=== PATIENT | female | born 1990 | race Caucasian/White ===

== ENCOUNTER 2017-08-01 18:56 | Emergency (ER) | payer BC, OTHER ==
[~2017-08-01] VITALS: Ht 154.9 cm; Wt 74.5 kg
[2017-08-01 18:58] VITALS: TEMP 36.9; Ht 154.9 cm; Wt 74.5 kg
[2017-08-01] MEDS ORDERED: SODIUM CHLORIDE 0.9% 1000ML 1,000 ML IV STA (19:11)
--- NOTE | 2017-08-01 19:14 | EMERGENCY ROOM VISIT NOTE ---
History Report prepared by Benibvinny: Starla Rodríguez Under the Supervision of: Dr. Lincoln Rogers D.O. First contact with patient: 19:00 Chief Complaint: ABDOMINAL PAIN Stated Complaint: ABDOMINAL PAIN, PRESSURE History of Present Illness The patient is a 27 year old female who presents to the Emergency Room with complaints of worsening abdominal pain for the past 6 weeks. She rates her discomfort as a 3/10 in severity. She describes her pain as feeling crampy in nature and reports she occasionally experiences "sharp" pain up the sides of her abdomen. The patient notes she is currently 17 weeks with her second . She has a history of pelvic congestion syndrome and endometriosis. She states her pain feels similar to her endometriosis pain. She denies any recent abnormal vaginal bleeding or discharge. She notes she saw her CONSULTING HR PROFESSIONAL at [facility] several weeks ago for the pain and was given a "belly brace", which has provided mild relief. Her last ultrasound was yesterday and showed Александр Garcia contractions. She admits to increased urination, but thinks this is because of her . 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 A total of 10 systems reviewed and were otherwise negative. Past Medical & Surgical Medical Problems: (1) Endometriosis (2) Kidney stones (3) Pelvic congestion syndrome (4) Pilonidal cyst Surgical Problems: (1) History of surgical removal of pilonidal cyst Social History Smoking Status: Never Smoker Alcohol Use: occasionally Drug Use: none Marital Status: in relationship Housing Status: lives with family Occupation Status: employed Current/Historical Medications Scheduled Multivit/Min/Iron/Fol Ac/Pren ( Vitamin), 1 TAB PO HS Allergies Coded Allergies: Acetaminophen (Unverified Allergy, Severe, VOMITING, 08/01/17) Hydrocodone (Unverified Allergy, Severe, VOMITING, 08/01/17) Chocolate (Verified Allergy, Unknown, ., 08/01/17) Egg (Verified Allergy, Unknown, ., 08/01/17) Milk (Verified Allergy, Unknown, ., 08/01/17) [place] (Verified Allergy, Unknown, ., 08/01/17) Peanut (Verified Allergy, Unknown, ., 08/01/17) [place] (Verified Allergy, Unknown, ., 08/01/17) Physical Exam Vital Signs Date Time Temp Pulse Resp B/P (MAP) Pulse Ox O2 Delivery O2 Flow Rate FiO2 08/02/17 00:06 71 16 100/58 99 08/01/17 22:42 86 17 93/78 98 Room Air 08/01/17 21:44 87 17 109/74 99 Room Air 08/01/17 20:36 83 17 109/78 100 Room Air 08/01/17 19:34 76 19 104/70 100 Room Air 08/01/17 18:58 36.9 91 18 148/93 100 Room Air Physical Exam GENERAL: Patient is awake, alert, in no acute distress, patient is resting comfortably and showing no signs of anxiety EYES: The conjunctivae are clear. The pupils are round and reactive. EARS, NOSE, MOUTH AND THROAT: The nose is without any evidence of any deformity. Mucous membranes are moist tongue is midline NECK: The neck is nontender and supple. RESPIRATORY: Normal respiratory effort is noted there is no evidence of wheezing rhonchi or rales CARDIOVASCULAR: Regular rate and rhythm noted there no murmurs rubs or gallops normal S1 normal S2 GASTROINTESTINAL: The abdomen is gravid in appearance. There was no tenderness, guarding or rigidity elicited. BACK: No midline tenderness or or step-off noted range of motion in flexion extension as well as rotation no signs of muscle spasm noted MUSCULOSKELETAL/EXTREMITIES: There is no evidence of gross deformity full range of motion is noted in the hips and shoulders SKIN: There is no obvious evidence of any rash. There are no petechiae, pallor or cyanosis noted. NEUROLOGIC: Patient is awake alert and oriented x3 Medical Decision & Procedures Laboratory Results 08/01/17 19:25 Red Blood Count 3.79, Mean Corpuscular Volume 96.3, Mean Corpuscular Hemoglobin 32.5, Mean Corpuscular Hemoglobin Concent 33.7, Mean Platelet Volume 9.7, Neutrophils (%) (Auto) 63.1, Lymphocytes (%) (Auto) 27.1, Monocytes (%) (Auto) 7.8, Eosinophils (%) (Auto) 1.5, Basophils (%) (Auto) 0.3, Neutrophils # (Auto) 6.67, Lymphocytes # (Auto) 2.87, Monocytes # (Auto) 0.83, Eosinophils # (Auto) 0.16, Basophils # (Auto) 0.03 08/01/17 19:25 Test 08/01/17 19:25 White Blood Count 10.58 K/uL (4.8-10.8) Red Blood Count 3.79 M/uL (4.2-5.4) Hemoglobin 12.3 g/dL (12.0-16.0) Hematocrit 36.5 % (37-47) Mean Corpuscular Volume 96.3 fL (80-100) Mean Corpuscular Hemoglobin 32.5 pg (25-34) Mean Corpuscular Hemoglobin Concent 33.7 g/dl (32-36) Platelet Count 262 K/uL (130-400) Mean Platelet Volume 9.7 fL (7.4-10.4) Neutrophils (%) (Auto) 63.1 % Lymphocytes (%) (Auto) 27.1 % Monocytes (%) (Auto) 7.8 % Eosinophils (%) (Auto) 1.5 % Basophils (%) (Auto) 0.3 % Neutrophils # (Auto) 6.67 K/uL (1.4-6.5) Lymphocytes # (Auto) 2.87 K/uL (1.2-3.4) Monocytes # (Auto) 0.83 K/uL (0.11-0.59) Eosinophils # (Auto) 0.16 K/uL (0-0.5) Basophils # (Auto) 0.03 K/uL (0-0.2) RDW Standard Deviation 47.1 fL (36.4-46.3) RDW Coefficient of Variation 13.5 % (11.5-14.5) Immature Granulocyte % (Auto) 0.2 % Immature Granulocyte # (Auto) 0.02 K/uL (0.00-0.02) Prothrombin Time 9.0 SECONDS (9.0-12.0) Prothromb Time International Ratio 0.8 (0.9-1.1) Activated Partial Thromboplast Time 25.4 SECONDS (21.0-31.0) Partial Thromboplastin Ratio 1.0 Urine Color YELLOW Urine Appearance CLEAR (CLEAR) Urine pH 7.0 (4.5-7.5) Urine Specific [place] 1.018 (1.000-1.030) Urine Protein NEG (NEG) Urine Glucose (UA) NEG (NEG) Urine Ketones NEG (NEG) Urine Occult Blood NEG (NEG) Urine Nitrite NEG (NEG) Urine Bilirubin NEG (NEG) Urine Urobilinogen NEG (NEG) Urine Leukocyte Esterase NEG (NEG) Anion Gap 4.0 mmol/L (3-11) Est Creatinine Clear Calc Drug Dose 105.8 ml/min Estimated GFR () 128.4 Estimated GFR (Non- 110.8 BUN/Creatinine Ratio 12.9 (10-20) Calcium Level 8.8 mg/dl (8.5-10.1) Total Bilirubin 0.3 mg/dl (0.2-1) Aspartate Amino Transf (AST/SGOT) 9 U/L (15-37) Alanine Aminotransferase (ALT/SGPT) 16 U/L (12-78) Alkaline Phosphatase 56 U/L (45-117) Total Protein 7.1 gm/dl (6.4-8.2) Albumin 3.3 gm/dl (3.4-5.0) Globulin 3.8 gm/dl (2.5-4.0) Albumin/Globulin Ratio 0.9 (0.9-2) Human Chorionic Gonadotropin, Quant 68081 mIU/mL Laboratory results per my review. Medications Administered Medications (Trade) Dose Ordered Sig/Talon Route Start Time Stop Time Status Last Admin Dose Admin Sodium Chloride 1,000 ml @ 999 mls/hr Q1H1M STAT IV 08/01/17 19:11 08/01/17 20:11 DC 08/01/17 19:11 999 MLS/HR ED Course 1905: The patient was evaluated in room C9. A complete history and physical examination were performed. 1910: NSS 1000 ml @ 999 mls/hr IV. 2049: I reevaluated the patient. She is resting comfortably and awaiting ultrasound. Medical Decision Prior records/ancillary studies reviewed. Triage Nursing notes reviewed. The patient's history was concerning for abdominal pain. Differential diagnosis: Etiologies such as appendicitis, diverticulitis, PUD, biliary pathology, UTI, pancreatitis, obstruction, mesenteric ischemia, aortic pathology, infections, inflammatory bowel disease, renal colic, as well as others were entertained. The patient is a 27-year-old female who presented to the emergency department with sharp intermittent pain. She is also 17 weeks and was concerned about the . The patient's physical exam was not consistent with an acute surgical abdomen. The patient was reevaluated multiple times. She was treated with IV fluids. She did not wish to have any medications for pain or nausea and she had no pain at this time. The patient's ultrasound took a very long time to obtain in the emergency department. She was signed out to Dr. Aparicio at change of shift. Please see his note for continuation of care. 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 Medication Reconcilliation Current Medication List: was personally reviewed by me Blood Pressure Screening Patient's blood pressure: Normal blood pressure Blood pressure disposition: Did not require urgent referral Impression Primary Impression: Abdominal pain Additional Impression: Scribe Attestation The scribe's documentation has been prepared under my direction and personally reviewed by me in its entirety. I confirm that the note above accurately reflects all work, treatment, procedures, and medical decision making performed by me. Departure Information Referrals No Doctor, Assigned (PCP) Patient Instructions My [facility] Problem Qualifiers Primary Impression: Abdominal pain Abdominal location: generalized Qualified Codes: R10.84 - Generalized abdominal pain Additional Impression: Weeks of gestation: 17 weeks Qualified Codes: Z3A.17 - 17 weeks gestation of
[2017-08-01 19:38] LABS: HEMATOCRIT 36.5 % (37-47); MEAN CELL VOLUME 96.3 fL (80-100); MEAN CORPUSCULAR HEMOGLOBIN 32.5 pg (25-34); MEAN CORPUSCULAR HGB CONC 33.7 g/dl (32-36); MEAN PLATELET VOLUME 9.7 fL (7.4-10.4); PLATELET COUNT 262 K/uL (130-400); RED BLOOD COUNT 3.79 M/uL (4.2-5.4); WHITE BLOOD COUNT 10.58 K/uL (4.8-10.8)
[2017-08-01] MEDS ORDERED: PRENTAB26 PO (19:39)
[2017-08-01 19:46] LABS: URINE APPEARANCE CLEAR (CLEAR); URINE BILIRUBIN NEG (NEG); URINE COLOR YELLOW; URINE NITRITE NEG (NEG); URINE SPECIFIC GRAVITY 1.018 (1.000-1.030); UROBILINOGEN NEG (NEG)
[2017-08-01 19:52] LABS: INR 0.8 (0.9-1.1)
[2017-08-01 19:53] LABS: MANUAL MICROSCOPIC REQUIRED? NO; REVIEW REQ? NO
[2017-08-01 19:58] LABS: BUN/CREATININE RATIO 12.9 (10-20); CALCIUM 8.8 mg/dl (8.5-10.1); CREATININE 0.75 mg/dl (0.60-1.20); POTASSIUM 3.5 mmol/L (3.5-5.1)
[2017-08-01 20:00] LABS: ALB/GLOB RATIO 0.9 (0.9-2)
[2017-08-01 20:01] LABS: BASO % 0.3 %; BASO ABS # 0.03 K/uL (0-0.2); COMPLETE YES; EOS % 1.5 %; IG% 0.2 %; LYMPH % 27.1 %; LYMPH ABS # 2.87 K/uL (1.2-3.4); MONO % 7.8 %; NEUT % 63.1 %
--- NOTE | 2017-08-01 22:45 | DIAGNOSTIC IMAGING REPORT ---
ULTRASOUND RIGHT UPPER QUADRANT ABDOMEN CLINICAL HISTORY: Right upper quadrant abdominal pain. . COMPARISON STUDY: Abdominal CT dated 12/23/2011. TECHNIQUE: Real-time, grayscale, and color flow sonography of the right upper quadrant of the abdomen was performed. Images are reviewed in the transverse and longitudinal planes. FINDINGS: Liver: The liver is normal in size and echotexture. There is no intrahepatic biliary ductal dilatation. The main portal vein is patent. Gallbladder: The gallbladder is normal in appearance. No gallstones are identified. There is no gallbladder wall thickening or pericholecystic fluid. A sonographic Bailey's sign is reportedly absent. The common bile duct measures up to 0.3 cm in diameter. Pancreas: Visualized portions of the pancreatic head and body are normal in appearance. The splenic vein is patent. Right kidney: Survey images of the right kidney demonstrate normal size and echotexture. There is moderate right hydronephrosis. Ascites: None. IMPRESSION: 1. No gallstones are identified. 2. There is moderate right hydronephrosis. This is nonspecific and although this could be related to mass effect from the gravid uterus the appearance is concerning for an obstructing ureteral stone as there were numerous right renal calculi seen by CT on 12/23/2011. Correlation with clinical findings and urinalysis will be required. Electronically signed by: Jermain Joyce M.D. 08/01/2017 10:43 PM Dictated Date/Time: 08/01/2017 10:41 PM
--- NOTE | 2017-08-01 22:48 | DIAGNOSTIC IMAGING REPORT ---
ULTRASOUND LIMITED CLINICAL HISTORY: Abdominal and pelvic pain. Reportedly 17 weeks . COMPARISON STUDY: No priors. FINDINGS: Real-time, grayscale, and color Doppler sonography of the fetus and gravid uterus is performed. There is a single live intrauterine gestation with an estimated heart rate of 140 bpm. The femoral length measures 2.45 cm, corresponding to an estimated age of 17 weeks 3 days. The placenta is posterior and normal as visualized. The amniotic fluid volume is grossly normal. The cervix appears closed. No adnexal lesion is seen. The ovaries are normal as visualized. The left ovary measures 2.6 x 1.7 x 2.4 cm in the right ovary measures 2.1 x 1.3 x 1.9 cm. Normal Doppler waveforms are shown within both ovaries. IMPRESSION: 1. There is a single live uterus gestation with an estimated age of 17 weeks 3 days by femoral length measurement. 2. Note that this does not constitute a dedicated anatomic scan. Electronically signed by: Jermain Joyce M.D. 08/01/2017 10:46 PM Dictated Date/Time: 08/01/2017 10:44 PM
[2017-08-02 00:06] VITALS: BP 100/58; PULSE 71; O2SAT 99
--- NOTE | 2017-08-02 01:07 | EMERGENCY ROOM VISIT NOTE ---
ED Visit Note First contact with patient: 23:07 This patient was signed out me with Dr. Rogers. She is 17 weeks and her workup was unremarkable.she is feeling much better she had had an episode of sharp central/epigastric abdominal pain. Blood work was unremarkable. Ultrasound shows no abnormalities. Gallbladder is normal. There may be some hydronephrosis on the right. It could be related . The patient no flank pain or blood in her urine to suggest acute renal problem . She has a history kidney stones and does not any pain consistent with her previous kidney stones I did discuss case Dr. Farr who agrees with the plan. the patient will be discharged to home and rest and drink plenty of the follow up with her access representative on Thursday for recheck.
== END 2017-08-02 00:08 | disposition home or self-care (01) ==
LOC: C.EDB 18:57 → C.EDC 08-02 00:08
DX: O26.892 Other specified pregnancy related conditions, second trimester (principal); R10.84 Generalized abdominal pain; Z3A.17 17 weeks gestation of pregnancy; N80.9 Endometriosis, unspecified; Z87.442 Personal history of urinary calculi; Z98.890 Other specified postprocedural states

== ENCOUNTER 2017-09-11 20:02 | Emergency (ER) | payer OTHER ==
[~2017-09-11] VITALS: Ht 154.9 cm; Wt 80.2 kg
[~2017-09-11 20:02] MED LIST: PRENTAB26 PO
[2017-09-11 20:12] VITALS: TEMP 36.7; Ht 154.9 cm; Wt 80.2 kg
[2017-09-11] MEDS ORDERED: AMOXICIL/CLAVU 875MG HOME PACK PO ONE (21:15)
[2017-09-11] MEDS ORDERED: OXYCODONE IR HOME PACK PO ONE (21:15)
[2017-09-11] MEDS ORDERED: AMOX875T PO (21:17)
[2017-09-11 21:25] VITALS: BP 130/70; PULSE 80; O2SAT 98
--- NOTE | 2017-09-12 16:16 | EMERGENCY ROOM VISIT NOTE ---
History First contact with patient: 20:58 Chief Complaint: WOUND INFECTION Stated Complaint: PILONIDAL CYST Nursing Triage Summary: see triage note History of Present Illness The patient is a 27 year old female who presents to the Emergency Room with complaints of pain and swelling above her tailbone worsening over the past 12 hours. The patient has a history of pilonidal cyst with abscess in the past, and states this feels similar. She did have surgical repair of this in [place] several years ago, and has been asymptomatic until today. The patient is reportedly 23 weeks , and is not having concerns regarding the baby. She is without abdominal pain, nausea, vomiting, diarrhea, or other complaints. She has not taken anything [id number] because of her status. She rates her discomfort a 9/10. Review of Systems More than 10 systems were reviewed and otherwise negative with the exception of history of present illness. Past Medical/Surgical History Medical Problems: (1) Endometriosis (2) Kidney stones (3) Pelvic congestion syndrome (4) Pilonidal cyst Surgical Problems: (1) History of surgical removal of pilonidal cyst Family History No pertinent family history Social History Smoking Status: Never Smoker Alcohol Use: occasionally Drug Use: none Marital Status: in relationship Housing Status: lives with family Occupation Status: employed Current/Historical Medications Scheduled Amoxicillin & Pot Clavulanate (Augmentin 875-125 mg), 1 TAB PO BID Multivit/Min/Iron/Fol Ac/Pren ( Vitamin), 1 TAB PO HS Physical Exam Vital Signs Date Time Temp Pulse Resp B/P (MAP) Pulse Ox O2 Delivery O2 Flow Rate FiO2 09/11/17 21:25 80 20 130/70 98 09/11/17 20:12 36.7 116 16 127/86 98 Room Air Physical Exam VITALS: Vitals are noted on the nurse's note and reviewed by myself. Vital signs stable. GENERAL: Well-developed, well-nourished, white female, who is in no acute distress and resting comfortably. Patient is cooperative with the examination. HEART: Regular rate and rhythm without murmurs gallops or rubs. LUNGS: Clear to auscultation bilaterally without wheezes, rales or rhonchi. No retractions or accessory muscle use. ABDOMEN: Positive normal bowel sounds x 4. Soft and consistent with RECTAL: The perirectal area appears without significant abscess, laceration, or fissure. The superior gluteal cleft is with a well-healed surgical incision. There is no distinct fluctuance on palpation. The patient does report tenderness along the inferior aspect of the surgical incision scar. MUSCULOSKELETAL: No muscle atrophy, erythema, or edema noted. Full range of motion without joint tenderness in all extremities. Medical Decision & Procedures Medications Administered Medications (Trade) Dose Ordered Sig/Talon Route Start Time Stop Time Status Last Admin Dose Admin Amoxicillin/ Clavulanate Potassium (Augmentin 875MG Home Pack) 1 homepack UD ONCE PO 09/11/17 21:15 09/11/17 21:16 DC 09/11/17 21:24 1 HOMEPACK Oxycodone HCl (Roxicodone Immediate Rel 5MG Home Pack) 1 homepack UD ONCE PO 09/11/17 21:15 09/11/17 21:16 DC 09/11/17 21:24 1 HOMEPACK ED Course Physical exam and history were performed. Nursing notes, EMR, and Medication List were personally reviewed. Patient appears to have discomfort along her gluteal cleft breath roughly in the anatomic area of the pilonidal cyst. On examination the patient does have some tenderness along the inferior aspect of her old surgical scar, however there is no distinct fluctuant mass for incision and drainage. There is also no significant redness or drainage from this area. My concern is the patient is developing a pilonidal abscess, which may still blossom. I discussed options of care with the patient, and we'll give her a home pack of oxycodone as well as a course of Augmentin. The hope is the antibiotic will help resolve any infectious process and improve her symptoms. The patient will certainly need close follow-up regarding her symptoms. I will give her information for a local surgeon and otherwise invited her back to the ER with any worsening symptoms. The patient was pleased with this and voiced understanding. The chart was completed utilizing [employer] Voice Recognition Software. Grammatical errors, random word insertions, pronoun errors, and incomplete sentences are an occasional consequence of this system due to software limitations, ambient noise, and hardware issues. Any formal questions or concerns about the content, text, or information contained within the body of this dictation should be directly addressed to the provider for clarification. . Medical Decision Differential diagnosis: Etiologies such as cellulitis, abscess, MRSA infection, DVT, necrotizing fasciitis, dermatitis, drug eruption, as well as others were entertained.. Impression Primary Impression: Pilonidal abscess Departure Information Dispostion Home / Self-Care Condition GOOD Prescriptions Amoxicillin & Pot Clavulanate (Augmentin 875-125 mg) 1 Tab Tab 1 TAB PO BID for 9 Days, #18 TAB Prov: Lloyd Mock PA-C 09/11/17 Referrals Shannon Smalls MD Forms HOME CARE DOCUMENTATION FORM, IMPORTANT VISIT INFORMATION Patient Instructions [facility] Additional Instructions You were seen and evaluated today on an emergency basis only. This is not a substitute for, or an effort to provide, complete comprehensive medical care. It is not possible to recognize and treat all injuries or illnesses in a single emergency department visit. For this reason it is recommended that you followup with general surgery, Dr Smalls, for ongoing care and evaluation. Call the office Thursday to make an appointment. Amoxicillin Clavulanate (Augmentin) 875mg: Take one pill twice daily for 10 days for your infection. All antibiotics can cause diarrhea. If this occurs and you feel worse or it does not resolve in 1-2 days follow up with your doctor or return to the Emergency Department as this could be signs of serious underlying problems. Any medication can cause an allergic reaction, stop the pills immediately and return to the ER for rash, hives, breathing difficulties, or swelling. Oxycodone (OxyIR) 5mg (homepack): Take ONE pill every SIX hours for breakthrough pain. Avoid alcohol, operating machinery or dangerous equipment, working on ladders or roofs, DRIVING, or situations where being under the influence may be dangerous. It is recommended to use an [id number] stool softener such as Colace, 100mg twice daily while taking this medication to avoid constipation. You are welcome to return to the emergency department anytime with new, worsening, or concerning symptoms.
== END 2017-09-11 21:28 | disposition home or self-care (01) ==
LOC: C.EDB 20:04 → C.EDD 21:28
DX: L05.01 Pilonidal cyst with abscess (principal); Z87.442 Personal history of urinary calculi